=== PATIENT | female | born 1930 | race Caucasian/White ===

== ENCOUNTER 2016-10-17 13:26 | Inpatient (IN) | payer OTHER, MEDICARE ==
[~2016-10-17] VITALS: Ht 162.6 cm; Wt 61.4 kg
[~2016-10-17 13:26] MED LIST: AMIODARONE HCL400 M1 ORAL; ASPIR 8181 MG ORAL; B COMPLEX1 EACH ORAL; BACTRIM DS TAB1 EAC1 ORAL; BENICAR20 MG ORAL; CARVEDILOL25 MG ORAL; CRESTOR20 MG ORAL; FEOSOL325 MG ORAL; GABAPENTIN100 MG ORAL; Guaifenesin/Dextromethorphan ORAL; NITROFURANTOIN100 M2 ORAL; NORVASC10 MG ORAL; SEROQUEL25 MG ORAL; WARFARIN SODIUM6 MG ORAL
--- NOTE | 2016-10-17 14:11 | Emergency Room Report ---
History of Present Illness General Chief Complaint: Dyspnea/Respdistress Source: Patient, Medical Record Present Illness HPI Patient is 86-year-old female who presented after having increased difficulty breathing for the past few days. The patient gradual onset of symptoms. Reportedly she had been sleeping upright for the past 2 days. The patient is had noted to have a prior cardiac history and has history of congestive heart failure. The patient has pacemaker placement in the past the patient reportedly fell approximately 2 days ago.The patient had the complaint of shortness of breath.The patient had worsening shortness of breath with supine position. Allergies: Coded Allergies: No Known Allergies (Unverified , 08/12/14) Patient History Past Medical History: see triage record Reviewed Nursing Documentation: PMH: Agreed, PSxH: Agreed Nursing Documentation-PMH Hx Cardiac Problems: Yes - bypass x4 Hx Hypertension: Yes Hx Pacemaker: Yes Hx Cancer: No Hx Gastrointestinal Problems: Yes - GERD Hx Neurological Problems: Yes Hx Cerebrovascular Accident: Yes Hx Dementia: Yes Review of Systems All Other Systems: negative except mentioned in HPI Physical Exam Vital Signs Date Time Temp Pulse Resp B/P Pulse Ox O2 Delivery O2 Flow Rate FiO2 10/17/16 13:38 97.9 60 28 158/76 98 Room Air General Appearance: alert, Chronically Ill Respiratory: crackles, rales Cardiovascular #1: normal peripheral pulses, regular rate, rhythm Gastrointestinal: normal bowel sounds, non tender, soft Musculoskeletal: normal inspection, back normal Neurologic: normal inspection, alert, oriented x3, responsive Skin: other - facial bruising. Medical Decision Making Diagnostic Impression: Primary Impression: CAD (coronary artery disease) Additional Impressions: Acute exacerbation of CHF (congestive heart failure) Meningioma ER Course Patient presented for shortness of breath.Differential included but was not limited to anemia, pneumonia, pneumothorax, myocardial infarction, pericardial effusion, congestive heart failure, acidosis. Because of complexity of patient' s case laboratory testing and imaging studies were ordered. The patient was noted to have a recent falls and so CT imaging of the head and cervical spine were ordered. Patient appears to be somewhat short of breath. The patient was given IV Lasix. A chest x-ray one view interpreted by me showed cardiomegaly status post sternotomy with a left pleural effusion. EKG showed a paced rhythm with a rate in the 60s there were no EKG changes consistent with acute [place]. CT the head read by radiology showed a meningioma and a small left periorbital scalp hematoma there is no evident fracture patient has some evidence of sinus disease. There is a 3 cm mass or calcifications consistent with a meningioma. CT of the cervical spine showed degenerative changes without evident fracture Labs Test 10/17/16 14:10 10/17/16 15:00 White Blood Count 11.3 K/UL (4.8-10.8) Red Blood Count 3.66 M/UL (4.20-5.40) Hemoglobin 10.8 G/DL (12.0-16.0) Hematocrit 31.5 % (37.0-47.0) Mean Corpuscular Volume 86 FL (80-99) Mean Corpuscular Hemoglobin 29.5 PG (27.0-31.0) Mean Corpuscular Hemoglobin Concent 34.3 G/DL (32.0-36.0) Red Cell Distribution Width 13.6 % (11.6-14.8) Platelet Count 194 K/UL (150-450) Mean Platelet Volume 7.8 FL (6.5-10.1) Neutrophils (%) (Auto) 73.7 % (45.0-75.0) Lymphocytes (%) (Auto) 14.9 % (20.0-45.0) Monocytes (%) (Auto) 9.9 % (1.0-10.0) Eosinophils (%) (Auto) 0.8 % (0.0-3.0) Basophils (%) (Auto) 0.7 % (0.0-2.0) Prothrombin Time 12.1 SEC (9.30-11.50) Prothromb Time International Ratio 1.2 (0.9-1.1) Activated Partial Thromboplast Time 26 SEC (23-33) Sodium Level 139 mEQ/L (135-145) Potassium Level 3.8 mEQ/L (3.4-4.9) Chloride Level 99 mEQ/L (98-107) Carbon Dioxide Level 26 mEQ/L (20-30) Anion Gap 14 (5-15) Blood Urea Nitrogen 15 mg/dL (7-23) Creatinine 1.2 mg/dL (0.5-0.9) Estimat Glomerular Filtration Rate mL/min (>60) Glucose Level 92 mg/dL (74-106) Calcium Level 8.6 mg/dL (8.6-10.2) Total Bilirubin 0.6 mg/dL (0.0-1.2) Aspartate Amino Transf (AST/SGOT) 20 U/L (5-40) Alanine Aminotransferase (ALT/SGPT) 17 U/L (3-33) Alkaline Phosphatase 55 U/L (35-104) Pro-B-Type Natriuretic Peptide 27917 pg/mL (0-450) Total Protein 6.6 g/dL (6.6-8.7) Albumin 3.6 g/dL (3.5-5.2) Globulin 3.0 g/dL Albumin/Globulin Ratio 1.2 (1.0-2.7) Urine Color Yellow Urine Appearance Clear Urine pH 6.5 (4.5-8.0) Urine Specific [place] 1.015 (1.005-1.035) Urine Protein 2+ (NEGATIVE) Urine Glucose (UA) Negative (NEGATIVE) Urine Ketones Negative (NEGATIVE) Urine Occult Blood 1+ (NEGATIVE) Urine Nitrite Negative (NEGATIVE) Urine Bilirubin Negative (NEGATIVE) Urine Urobilinogen 4 MG/DL (0.0-1.0) Urine Leukocyte Esterase Negative (NEGATIVE) EKG Diagnostic Results Rate: normal Rhythm: NSR ST Segments: no acute changes Chest X-Ray Diagnostic Results EP Interpretation: No Findings: no effusion, no pneumothorax, no acute cardiopulmonary disease, other Number of Views: 1 Last Vital Signs Date Time Temp Pulse Resp B/P Pulse Ox O2 Delivery O2 Flow Rate FiO2 10/17/16 13:38 97.9 60 28 158/76 98 Room Air Status: unchanged Disposition: [facility] Condition: Serious Juan Moy Oct 17, 2016 14:11
[2016-10-17 14:25] LABS: BASOPHILS % (AUTO) 0.7 % (0.0-2.0); EOSINOPHILS % (AUTO) 0.8 % (0.0-3.0); LYMPHOCYTES % (AUTO) 14.9 % (20.0-45.0); MEAN CORPUSCULAR HEMOGLOBIN 29.5 PG (27.0-31.0); MEAN CORPUSCULAR HGB CONC 34.3 G/DL (32.0-36.0); MEAN CORPUSCULAR VOLUME 86 FL (80-99); MEAN PLATELET VOLUME 7.8 FL (6.5-10.1); MONOCYTES % (AUTO) 9.9 % (1.0-10.0); NEUTROPHILS % (AUTO) 73.7 % (45.0-75.0); PLATELET COUNT 194 K/UL (150-450); RED BLOOD COUNT 3.66 M/UL (4.20-5.40); RED CELL DISTRIBUTION WIDTH 13.6 % (11.6-14.8); WHITE BLOOD COUNT 11.3 K/UL (4.8-10.8)
[2016-10-17 14:33] LABS: INR 1.2 (0.9-1.1); PROTHROMBIN TIME 12.1 SEC (9.30-11.50)
[2016-10-17 14:42] LABS: ALANINE AMINOTRANSFERASE 17 U/L (3-33); ALBUMIN/GLOBULIN RATIO 1.2 (1.0-2.7); ANION GAP 14 (5-15); ASPARTATE AMINO TRANSFERASE 20 U/L (5-40); CALCIUM 8.6 mg/dL (8.6-10.2); CARBON DIOXIDE 26 mEQ/L (20-30); CHLORIDE 99 mEQ/L (98-107); CREATININE 1.2 mg/dL (0.5-0.9); HEMOLYSIS 15; POTASSIUM 3.8 mEQ/L (3.4-4.9); SODIUM 139 mEQ/L (135-145); TOTAL PROTEIN 6.6 g/dL (6.6-8.7)
--- NOTE | 2016-10-17 14:55 | Diagnostic Imaging Report ---
Indication: SOB, chest pain Technique: One view of the chest Comparison: 05/28/2016 Findings: Patient is rotated to the left. This results in suboptimal visualization of the left lung base. There is a left chest bifocal pacemaker. There is evidence of prior median sternotomy The heart is enlarged. No definite acute infiltrates or congestion, although evaluation of the left lung is limited. There is equivocally minimal blunting of left costophrenic angle Impression: Cardiomegaly Equivocal minimal blunting of left costophrenic angle, if real could indicate a small pleural effusion No definite acute process otherwise Other findings as noted, including evidence of prior median sternotomy, left chest pacemaker,
[2016-10-17 15:16] VITALS: BP 147/89
[2016-10-17 15:24] LABS: APPEARANCE,URINE CLEAR; KETONES,URINE NEGATIVE (NEGATIVE); LEUKOCYTE ESTERASE ,URINE NEGATIVE (NEGATIVE); NITRITE,URINE NEGATIVE (NEGATIVE); PH,URINE 6.5 (4.5-8.0); PROTEIN,URINE 2+ (NEGATIVE); UROBILINOGEN,URINE 4 MG/DL (0.0-1.0)
[2016-10-17 15:33] LABS: BACTERIA,URINE FEW /HPF; RBC,URINE 0-2 /HPF (0 - 2); SQUAMOUS EPITHELIAL CELL,UR FEW /LPF (NONE/OCC); WBC,URINE 0-2 /HPF (0 - 2)
--- NOTE | 2016-10-17 15:35 | Diagnostic Imaging Report ---
Indications: Developing at the 2 days ago Technique: Spiral acquisitions obtained through the brain. Angled axial and coronal 5 x 5 mm slices were reconstructed. Total dose length product 1305 mGycm. CTDI vol(s) 70 mGy Comparison: None Findings: There is a hyperdense extra-axial mass with calcification coming off of the left side of the posterior falx, which measures 3 cm diameter. There is some underlying parenchymal edema within the adjacent deep white matter. There is only local mass effect, there is no midline shift. There is a small left periorbital scalp hematoma. No underlying calvarial injury. There is age-related enlargement of the extra-axial CSF spaces. This there is old encephalomalacia of the right occipital lobe and to lesser extent of the left occipital lobe. No acute hemorrhage or edema. There is an old lacunar infarct in the right external capsule region. No midline shift. Visualized orbits are unremarkable. There is some ethmoid and left maxillary sinus disease. Impression: Negative for acute intracranial bleed or mass effect Dense extra-axial 3 cm mass with calcification coming off of the left side of the posterior falx, consistent with a meningioma. Local mass effect. There is some underlying edema of the subjacent deep white matter Of old infarcts, as described Other chronic and age-related changes, as described Evidence of left periorbital scalp soft tissue contusion Sinus disease The CT scanner at [facility] is accredited by the [employer] and the scans are performed using protocols designed to limit radiation exposure to as low as reasonably achievable to attain images of sufficient resolution adequate for diagnostic evaluation.
[2016-10-17 16:05] VITALS: BP 163/73
--- NOTE | 2016-10-17 17:34 | Diagnostic Imaging Report ---
Indication: PAIN, out of bed 2 days ago Technique: Spiral acquisitions obtained through the cervical spine. No IV contrast utilized. Multiplanar reconstructions were generated. Total dose length product 322 mGycm. CTDIvol(s) 15 mGy Comparison: Findings: There is very slight anterior offset of C4 on C5. Bony alignment is otherwise normal. No acute fractures. No dislocations. Vertebral body heights are preserved. There is degenerative disc narrowing at C5-6 and C6-7. A few small gas bubbles are seen adjacent to the right side of the spine at the C5-6 level. At C2-3, C3-4, C4-5, no significant disc bulge or protrusion, spinal stenosis, or neural foraminal stenosis. At C5-6, there is mild spinal stenosis due to posterior osteophytes. There is severe right, moderate to severe left neural foraminal stenosis. At C6-7, there is mild narrowing of the bilateral neural foramina. No significant disc bulge or protrusion, or spinal stenosis. At C7-T1, no significant disc bulge or protrusion, spinal stenosis, or neural foraminal narrowing. The included extraspinal soft tissues are unremarkable. Impression: No acute bony trauma Degenerative changes, as detailed level by level basis above A few small air bubbles are seen lateral to the right side of the spine, as described. Suspect the these represent reflux gas bubbles from an IV within the paraspinous veins The CT scanner at [facility] is accredited by the [employer] and the scans are performed using protocols designed to limit radiation exposure to as low as reasonably achievable to attain images of sufficient resolution adequate for diagnostic evaluation.
--- NOTE | 2016-10-17 17:58 | History and Physical ---
History of Present Illness General Date patient seen: Oct 17, 2016 Reason for Hospitalization: Dyspnea/Respdistress Present Illness HPI 86-year-old female wtih hx of cardiomyopathy, CHF, pace maker, dementia who presented after having increased difficulty breathing for the past few days. The patient gradual onset of symptoms. Reportedly she had been sleeping upright for the past 2 days. The patient had the complaint of shortness of breath.The patient had worsening shortness of breath with supine position. Allergies: Coded Allergies: No Known Allergies (Unverified , 08/12/14) Medication History Scheduled Amiodarone Hcl* (Amiodarone Hcl*), 200 MG ORAL DAILY, (Reported) Amlodipine Besylate (Norvasc), 10 MG ORAL DAILY Aspirin* (Aspir 81*), 81 MG ORAL DAILY, (Reported) Carvedilol* (Carvedilol*), 25 MG ORAL BID, (Reported) Ferrous Sulfate (Feosol), 325 MG ORAL THREE TIMES A DAY Gabapentin* (Gabapentin*), 100 MG ORAL BID, (Reported) Nitrofurantoin Monohyd/M-Cryst* (Macrobid 100 Mg*), 100 MG ORAL EVERY 12 HOURS Olmesartan Medoxomil (Benicar), 20 MG ORAL DAILY, (Reported) Rosuvastatin Calcium* (Crestor*), 20 MG ORAL DAILY, (Reported) Trimethoprim/Sulfamethoxazole 160/800* (Bactrim Ds Tablet*), 1 TAB ORAL TWICE A DAY Vitamin B Complex (B Complex), 1 TAB ORAL DAILY, (Reported) Scheduled PRN Quetiapine Fumarate* (Seroquel*), 25 MG ORAL QHS PRN for ANXIETY [Guaifenesin/Dextromethorphan], 10 ML ORAL Q4H PRN for For Cough Patient History Healthcare decision maker Resuscitation status Advanced Directive on File Past Medical/Surgical History Past Medical/Surgical History: (1) Pacemaker (2) Acute exacerbation of CHF (congestive heart failure) (3) CAD (coronary artery disease) (4) Sepsis (5) UTI (lower urinary tract infection) Review of Systems All Other Systems: negative except mentioned in HPI Physical Exam General Appearance: WD/WN Lines, tubes and drains: peripheral, central line HEENT: normocephalic, anicteric Neck: non-tender, supple Respiratory/Chest: chest wall non-tender, lungs clear Cardiovascular/Chest: normal peripheral pulses, normal rate Abdomen: normal bowel sounds, non tender Genitourinary/Rectal: normal genital exam Extremities: normal range of motion Last 24 Hour Vital Signs Date Time Temp Pulse Resp B/P Pulse Ox O2 Delivery O2 Flow Rate FiO2 10/17/16 16:05 97.9 61 21 163/73 98 Room Air 10/17/16 15:16 97.9 60 22 147/89 98 Room Air 10/17/16 15:16 60 23 Room Air 10/17/16 13:38 97.9 60 28 158/76 98 Room Air Laboratory Tests Test 10/17/16 14:10 10/17/16 15:00 White Blood Count 11.3 K/UL (4.8-10.8) H Red Blood Count 3.66 M/UL (4.20-5.40) L Hemoglobin 10.8 G/DL (12.0-16.0) L Hematocrit 31.5 % (37.0-47.0) L Mean Corpuscular Volume 86 FL (80-99) Mean Corpuscular Hemoglobin 29.5 PG (27.0-31.0) Mean Corpuscular Hemoglobin Concent 34.3 G/DL (32.0-36.0) Red Cell Distribution Width 13.6 % (11.6-14.8) Platelet Count 194 K/UL (150-450) Mean Platelet Volume 7.8 FL (6.5-10.1) Neutrophils (%) (Auto) 73.7 % (45.0-75.0) Lymphocytes (%) (Auto) 14.9 % (20.0-45.0) L Monocytes (%) (Auto) 9.9 % (1.0-10.0) Eosinophils (%) (Auto) 0.8 % (0.0-3.0) Basophils (%) (Auto) 0.7 % (0.0-2.0) Prothrombin Time 12.1 SEC (9.30-11.50) H Prothromb Time International Ratio 1.2 (0.9-1.1) H Activated Partial Thromboplast Time 26 SEC (23-33) Sodium Level 139 mEQ/L (135-145) Potassium Level 3.8 mEQ/L (3.4-4.9) Chloride Level 99 mEQ/L (98-107) Carbon Dioxide Level 26 mEQ/L (20-30) Anion Gap 14 (5-15) Blood Urea Nitrogen 15 mg/dL (7-23) Creatinine 1.2 mg/dL (0.5-0.9) H Estimat Glomerular Filtration Rate mL/min (>60) Glucose Level 92 mg/dL (74-106) Calcium Level 8.6 mg/dL (8.6-10.2) Total Bilirubin 0.6 mg/dL (0.0-1.2) Aspartate Amino Transf (AST/SGOT) 20 U/L (5-40) Alanine Aminotransferase (ALT/SGPT) 17 U/L (3-33) Alkaline Phosphatase 55 U/L (35-104) Pro-B-Type Natriuretic Peptide 97604 pg/mL (0-450) H Total Protein 6.6 g/dL (6.6-8.7) Albumin 3.6 g/dL (3.5-5.2) Globulin 3.0 g/dL Albumin/Globulin Ratio 1.2 (1.0-2.7) Urine Color Yellow Urine Appearance Clear Urine pH 6.5 (4.5-8.0) Urine Specific [place] 1.015 (1.005-1.035) Urine Protein 2+ (NEGATIVE) H Urine Glucose (UA) Negative (NEGATIVE) Urine Ketones Negative (NEGATIVE) Urine Occult Blood 1+ (NEGATIVE) H Urine Nitrite Negative (NEGATIVE) Urine Bilirubin Negative (NEGATIVE) Urine Urobilinogen 4 MG/DL (0.0-1.0) H Urine Leukocyte Esterase Negative (NEGATIVE) Urine RBC 0-2 /HPF (0 - 2) Urine WBC 0-2 /HPF (0 - 2) Urine Squamous Epithelial Cells Few /LPF (NONE/OCC) Urine Bacteria Few /HPF (NONE) Height (Feet): 5 Height (Inches): 4.00 Weight (Pounds): 140 Assessment/Plan Problem List: (1) Acute exacerbation of CHF (congestive heart failure) ICD Codes: I50.9 - Heart failure, unspecified SNOMED: 83895182 (2) Pacemaker ICD Codes: Z95.0 - Presence of cardiac pacemaker SNOMED: 267398006, 657867444 (3) CAD (coronary artery disease) ICD Codes: I25.10 - CAD (coronary artery disease) SNOMED: 47380474 Assessment/Plan cardiac evaluation telemetry check pace maker diuretics respiratory treatment titrate cardiac meds KEITH PAIGE Oct 17, 2016 17:58
[2016-10-17] MEDS ORDERED: Miralax 17gm pkt ORAL PRN (18:00)
[2016-10-17] MEDS ORDERED: DuoNeb 0.5-3(2.5)mg/3ml neb HHN PRN (18:00)
[2016-10-17 18:39] VITALS: BP 163/81
[2016-10-17 20:10] VITALS: BP 163/81
[2016-10-17 20:20] LABS: TROPONIN I < 0.30 ng/mL (<=0.30)
[2016-10-17] MEDS: Carvedilol 25mg Tab ORAL SCH (22:08)
[2016-10-17] MEDS: Heparin 5000 units/ml inj SUBQ SCH (22:09)
[2016-10-18] VITALS: BP 163/75
[2016-10-18 04:00] VITALS: BP 118/93
[2016-10-18 07:08] LABS: BASOPHILS % (AUTO) 0.8 % (0.0-2.0); EOSINOPHILS % (AUTO) 0.8 % (0.0-3.0); LYMPHOCYTES % (AUTO) 11.8 % (20.0-45.0); MEAN CORPUSCULAR HEMOGLOBIN 27.2 PG (27.0-31.0); MEAN CORPUSCULAR HGB CONC 31.8 G/DL (32.0-36.0); MEAN CORPUSCULAR VOLUME 86 FL (80-99); MEAN PLATELET VOLUME 8.5 FL (6.5-10.1); MONOCYTES % (AUTO) 11.3 % (1.0-10.0); NEUTROPHILS % (AUTO) 75.3 % (45.0-75.0); PLATELET COUNT 215 K/UL (150-450); RED BLOOD COUNT 4.15 M/UL (4.20-5.40); RED CELL DISTRIBUTION WIDTH 13.3 % (11.6-14.8); WHITE BLOOD COUNT 9.4 K/UL (4.8-10.8)
[2016-10-18 07:17] LABS: TROPONIN I < 0.30 ng/mL (<=0.30)
[2016-10-18 07:31] LABS: ALANINE AMINOTRANSFERASE 17 U/L (3-33); ALBUMIN/GLOBULIN RATIO 1.1 (1.0-2.7); ANION GAP 13 (5-15); ASPARTATE AMINO TRANSFERASE 20 U/L (5-40); CARBON DIOXIDE 33 mEQ/L (20-30); CHLORIDE 97 mEQ/L (98-107); CREATININE 1.2 mg/dL (0.5-0.9); HEMOLYSIS 2; SODIUM 143 mEQ/L (135-145); TOTAL PROTEIN 6.9 g/dL (6.6-8.7)
[2016-10-18 07:44] LABS: POTASSIUM 2.7 mEQ/L (3.4-4.9)
[2016-10-18 07:58] VITALS: BP 151/58
[2016-10-18] MEDS: Amiodarone 200mg tab ORAL SCH (09:12)
[2016-10-18] MEDS: Heparin 5000 units/ml inj SUBQ SCH ×2 (09:14→21:24)
[2016-10-18] MEDS: Carvedilol 25mg Tab ORAL SCH ×2 (09:22→21:22)
[2016-10-18 11:41] VITALS: BP 118/59
--- NOTE | 2016-10-18 12:58 | Pulmonology Progress Note ---
Assessment/Plan Problems: (1) Acute exacerbation of CHF (congestive heart failure) (2) Pacemaker (3) CAD (coronary artery disease) Assessment/Plan k supplement measure intake and output check electrolytes 2d echo dvt prophylaxis wbc is better today. Subjective ROS Limited/Unobtainable: No Interval Events: doing better Constitutional: Reports: no symptoms HEENT: Repors: no symptoms Respiratory: Reports: no symptoms Cardiovascular: Reports: no symptoms Allergies: Coded Allergies: No Known Allergies (Unverified , 08/12/14) Objective Last 24 Hour Vital Signs Date Time Temp Pulse Resp B/P Pulse Ox O2 Delivery O2 Flow Rate FiO2 10/18/16 11:41 97.3 61 18 118/59 95 Room Air 10/18/16 09:22 60 151/58 10/18/16 09:12 60 151/58 10/18/16 08:14 60 18 Room Air 10/18/16 07:58 97.0 60 20 151/58 94 Room Air 10/18/16 04:00 97.6 60 16 118/93 93 Room Air 10/18/16 04:00 60 10/18/16 00:00 60 10/18/16 00:00 97.7 60 16 163/75 93 Room Air 10/17/16 22:08 60 163/81 10/17/16 20:10 93.4 60 15 163/81 96 Room Air 10/17/16 20:05 65 18 Room Air 10/17/16 20:00 60 10/17/16 18:39 93.4 60 15 163/81 96 Room Air 10/17/16 18:17 97.9 61 21 163/73 98 Room Air 10/17/16 16:05 97.9 61 21 163/73 98 Room Air 10/17/16 15:16 97.9 60 22 147/89 98 Room Air 10/17/16 15:16 60 23 Room Air 10/17/16 13:38 97.9 60 28 158/76 98 Room Air Intake and Output 10/17/16 10/18/16 19:00 07:00 Output Total 1300 ml 4175 ml Balance -1300 ml -4175 ml Output Urine Total 1300 ml 4175 ml General Appearance: WD/WN HEENT: normocephalic, atraumatic Respiratory/Chest: chest wall non-tender, lungs clear Cardiovascular: normal peripheral pulses, regular rhythm Genitourinary: normal external genitalia Extremities: no clubbing 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: 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 Laboratory Tests 10/17/16 14:10: White Blood Count 11.3H, Red Blood Count 3.66L, Hemoglobin 10.8L, Hematocrit 31.5L, Mean Corpuscular Volume 86, Mean Corpuscular Hemoglobin 29.5, Mean Corpuscular Hemoglobin Concent 34.3, Red Cell Distribution Width 13.6, Platelet Count 194, Mean Platelet Volume 7.8, Neutrophils (%) (Auto) 73.7, Lymphocytes (% ) (Auto) 14.9L, Monocytes (%) (Auto) 9.9, Eosinophils (%) (Auto) 0.8, Basophils (%) (Auto) 0.7, Prothrombin Time 12.1H, Prothromb Time International Ratio 1.2H , Activated Partial Thromboplast Time 26, Sodium Level 139, Potassium Level 3.8 , Chloride Level 99, Carbon Dioxide Level 26, Anion Gap 14, Blood Urea Nitrogen 15, Creatinine 1.2H, Estimat Glomerular Filtration Rate , Glucose Level 92, Calcium Level 8.6, Total Bilirubin 0.6, Aspartate Amino Transf (AST/SGOT) 20, Alanine Aminotransferase (ALT/SGPT) 17, Alkaline Phosphatase 55, Troponin I < 0.30, Pro-B-Type Natriuretic Peptide 53299I, Total Protein 6.6, Albumin 3.6, Globulin 3.0, Albumin/Globulin Ratio 1.2 10/17/16 15:00: Urine Color Yellow, Urine Appearance Clear, Urine pH 6.5, Urine Specific [place] 1.015, Urine Protein 2+H, Urine Glucose (UA) Negative, Urine Ketones Negative, Urine Occult Blood 1+H, Urine Nitrite Negative, Urine Bilirubin Negative, Urine Urobilinogen 4H, Urine Leukocyte Esterase Negative, Urine RBC 0- 2, Urine WBC 0-2, Urine Squamous Epithelial Cells Few, Urine Bacteria Few 10/18/16 06:15: White Blood Count 9.4, Red Blood Count 4.15L, Hemoglobin 11.3L, Hematocrit 35.5L , Mean Corpuscular Volume 86, Mean Corpuscular Hemoglobin 27.2, Mean Corpuscular Hemoglobin Concent 31.8L, Red Cell Distribution Width 13.3, Platelet Count 215, Mean Platelet Volume 8.5, Neutrophils (%) (Auto) 75.3H, Lymphocytes (%) (Auto) 11.8L, Monocytes (%) (Auto) 11.3H, Eosinophils (%) (Auto ) 0.8, Basophils (%) (Auto) 0.8, Sodium Level 143, Potassium Level 2.7*L, Chloride Level 97L, Carbon Dioxide Level 33H, Anion Gap 13, Blood Urea Nitrogen 13, Creatinine 1.2H, Estimat Glomerular Filtration Rate , Glucose Level 95, Calcium Level 9.0, Total Bilirubin 0.6, Aspartate Amino Transf (AST/SGOT) 20, Alanine Aminotransferase (ALT/SGPT) 17, Alkaline Phosphatase 57, Troponin I < 0.30, Total Protein 6.9, Albumin 3.7, Globulin 3.2, Albumin/Globulin Ratio 1.1, Phosphorus Level 3.7, Magnesium Level 2.0 Current Medications Medications (Trade) Dose Ordered Sig/Fernando Route PRN Reason Start Time Stop Time Status Last Admin Dose Admin Acetaminophen (Tylenol) 650 mg Q4H PRN ORAL Fever 10/17/16 18:00 11/16/16 17:59 Albuterol/ Ipratropium (DuoNeb 0.5-3(2.5)mg/3ml) 3 ml Q4H PRN HHN Shortness of Breath 10/17/16 18:00 10/22/16 17:59 Amiodarone HCl (Cordarone) 200 mg DAILY ORAL 10/18/16 09:00 11/17/16 08:59 10/18/16 09:12 Amlodipine Besylate (Norvasc) 10 mg DAILY ORAL 10/18/16 09:00 11/17/16 08:59 10/18/16 09:12 Carvedilol (Coreg) 25 mg Q12HR ORAL 10/17/16 21:00 11/16/16 20:59 10/18/16 09:22 Dextrose (Dextrose 50%) STAT PRN IV Hypoglycemia 10/17/16 18:00 11/16/16 17:59 Furosemide (Lasix) 40 mg EVERY 8 HOURS IV 10/17/16 22:00 11/16/16 21:59 10/18/16 06:06 Heparin Sodium (Porcine) (Heparin 5000 units/ml) 5,000 units EVERY 12 HOURS SUBQ 10/17/16 21:00 11/16/16 20:59 10/18/16 09:14 Ondansetron HCl (Zofran) 4 mg Q6H PRN IVP Nausea & Vomiting 10/17/16 18:00 11/16/16 17:59 Polyethylene Glycol (Miralax) 17 gm DAILYPRN PRN ORAL Constipation 10/17/16 18:00 11/16/16 17:59 Potassium Chloride (K-Dur) 40 meq TWICE A DAY ORAL 10/18/16 18:00 11/17/16 17:59 Quetiapine Fumarate (SEROquel) 25 mg HSPRN PRN ORAL ANXIETY 10/17/16 18:00 11/16/16 17:59 Temazepam (Restoril) 15 mg HSPRN PRN ORAL Insomnia 10/17/16 18:00 10/24/16 17:59 KEITH PAIGE Oct 18, 2016 12:58
[2016-10-18 16:20] VITALS: BP 128/64
--- NOTE | 2016-10-18 17:26 | Consultation ---
Consult Note Consult Note Cardiology for Dr. Harvey full note dictated # [id number] AMAURI ZAIDI Oct 18, 2016 17:26
[2016-10-18 20:50] VITALS: BP 135/83
[2016-10-19 00:11] VITALS: BP 94/65
[2016-10-19 04:32] VITALS: BP 118/50
[2016-10-19 07:09] LABS: TROPONIN I < 0.30 ng/mL (<=0.30)
--- NOTE | 2016-10-19 07:48 | Consultation ---
DATE OF CONSULTATION: CARDIOLOGY CONSULTATION: REQUESTING PHYSICIAN: Joseph Dsouza M.D. REASON FOR CONSULT: Shortness of breath and congestive heart failure. HISTORY OF PRESENT ILLNESS: History was obtained primarily from the treating providers current and old charts as the patient is Palestinian-speaking and has dementia. The patient is an 86-year-old white female with a history of severe aortic stenosis initially diagnosed in 2012 (aortic valve area 0.6 cm, EF 48% at that time) history of coronary artery disease, remote history of coronary artery bypass graft surgery, and history of sick sinus syndrome status post permanent pacemaker in 2001 with generator replacement (Biotronik) in 2010. She was brought to the emergency room with complaints of increasing shortness of breath, orthopnea, and PND over the few days prior to admission. In the emergency room, she had a blood pressure of 160/73, pulse 61, and oxygen saturation 98% on room air. Her chest x-ray showed cardiomegaly and small left pleural effusion. Laboratory studies [place] [address] and negative troponin levels. EKG showed an atrial paced rhythm. She was admitted for further treatment and Cardiology evaluation was requested. PAST MEDICAL HISTORY: As noted above. Also history of urinary tract infections and history of previous CVA with left sided weakness. MEDICATIONS: Potassium 40 mEq twice daily, Cordarone 200 mg daily, amlodipine 10 mg daily, Lasix 40 mg IV every eight hours, Coreg 25 mg q.12 hours, subcutaneous heparin 5000 units q.12. hours, Seroquel 25 mg at nightly p.r.n., Restoril 15 mg nightly p.r.n., Tylenol and Zofran p.r.n., albuterol, and ipratropium nebulizer q.4 hours p.r.n. ALLERGIES: No known drug allergies. SOCIAL HISTORY: Not obtainable from the patient or chart. REVIEW OF SYSTEMS: Not obtainable from the patient or chart. PHYSICAL EXAMINATION: VITAL SIGNS: Blood pressure is 118/60, pulse 60 regular, respirations 18, and afebrile. GENERAL: The patient is alert, agitated white female, in no acute distress. HEENT: There is periorbital ecchymosis. Pupils equal, round, and reactive to light. Sclerae anicteric. Oral mucosa moist. NECK: Supple. Carotid volumes are diminished bilaterally. There are no bruits. LUNGS: Decreased breath sounds at the bases bilaterally. HEART: Regular rate and rhythm. S1, S2 with a 1 to 2/6 systolic ejection murmur. Late peaking of the right second intercostal space. ABDOMEN: Soft and nontender. No palpable mass. EXTREMITIES: No cyanosis, clubbing, or edema. LABORATORY AND DIAGNOSTIC DATA: Troponin less than 0.3. ProBNP 66781. Sodium 139, potassium 3.8, BUN 15, and creatinine 1.2. Hemoglobin 11.3, white blood count 9400, platelets 215,000. EKG shows an atrial paced rhythm at a rate of 60 beats per minute with a long AV conduction time, conducted QRS complexes are narrow. There are inverted T-waves in the lateral leads 1L as well as V2 thru V6. No ST-segment changes. Chest x-ray shows permanent pacemaker with leads in the right atrium right ventricle. No infiltrates or cardiomegaly. ASSESSMENT AND RECOMMENDATIONS: The patient is an 86-year-old woman with a history of coronary artery disease, remote history of coronary artery bypass graft surgery, history of aortic stenosis diagnosed three years ago, but with no intervention undertaken at that time given the patient's low functional status. She now is admitted with sick sinus syndrome status post permanent dual-chamber pacemaker, previous CVA, and history of severe aortic stenosis with no intervention performed given the patient's comorbidities and low functional status. She now was admitted with congestive heart failure, which appears to be responding to intravenous diuretics. Her echo (preliminary report shows severe aortic stenosis and normal left ventricular ejection fraction. She is not likely to be a candidate currently for intervention aortic valve given the previous history of echo shows severe aortic stenosis. She will be treated with diuretics. Pacemaker will be evaluated. Potassium will be supplemented as today's potassium was 2.7. Further recommendations will be made following discussion with the family regarding the feasibility of intervention on the aortic valve in the past. Family has declined given the patient's comorbidities and limited prognosis. Adriana Stephens M.D. DR: Paola JOB#: [id number] CC:
[2016-10-19 08:22] VITALS: BP 140/58
[2016-10-19] MEDS: Carvedilol 25mg Tab ORAL SCH ×2 (10:23→21:10)
[2016-10-19] MEDS: Amiodarone 200mg tab ORAL SCH (10:24)
[2016-10-19] MEDS: Heparin 5000 units/ml inj SUBQ SCH ×2 (10:26→21:09)
[2016-10-19 12:16] VITALS: BP 130/73
--- NOTE | 2016-10-19 14:17 | Cardiology Progress Note ---
Assessment/Plan Status: stable, progressing Status Narrative CHF - due to valvular heart disease - severe aortic stenosis by ECHO Diuresing w/ iv lasix - > 3L yesterday. h/o sick sinus synd / s/p permanent pacemaker Assessment/Plan Will check labs today - incl K, Mg, as may need further supplement w/ diuresis Continue to follow i/os Change lasix to po She was previously evaluated for and not felt to be a candidate for AVR or TAVR Subjective ROS Limited/Unobtainable: No Subjective No c/o CP , dyspnea. More alert Objective Last 24 Hour Vital Signs Date Time Temp Pulse Resp B/P Pulse Ox O2 Delivery O2 Flow Rate FiO2 10/19/16 12:16 98.1 61 20 130/73 95 Room Air 10/19/16 10:24 60 140/58 10/19/16 10:23 60 140/58 10/19/16 08:22 97.9 60 20 140/58 95 Room Air 10/19/16 08:00 60 10/19/16 07:50 62 18 Room Air 10/19/16 04:32 98.1 65 19 118/50 95 Room Air 10/19/16 00:57 60 10/19/16 00:11 97.9 62 18 94/65 96 Room Air 10/18/16 21:22 60 135/83 10/18/16 20:50 96.5 60 20 135/83 92 Room Air 10/18/16 19:26 63 18 Room Air 10/18/16 16:20 98.2 61 18 128/64 96 Room Air 10/18/16 16:00 60 General Appearance: WD/WN, alert EENT: PERRL/EOMI Neck: supple, no JVD, other - carotid volumes decreased Rhythm: NSR Cardiovascular: normal rate, regular rhythm, systolic murmur - ii/vi late peaking CHRISSIE R second ics Respiratory/Chest: lungs clear Abdomen: non tender, soft Extremities: no swelling Intake and Output 10/18/16 10/19/16 19:00 07:00 Intake Total 240 ml Output Total 2300 ml 1400 ml Balance -2060 ml -1400 ml Intake Oral 240 ml Output Urine Total 2300 ml 1400 ml Laboratory Tests Test 10/19/16 05:30 Troponin I < 0.30 ng/mL (<=0.30) Microbiology Date/Time Source Procedure Growth Status 10/17/16 14:15 Blood Blood Culture - Preliminary NO GROWTH AFTER 24 HOURS Resulted 10/17/16 14:05 Blood Blood Culture - Preliminary NO GROWTH AFTER 24 HOURS Resulted AMAURI ZAIDI Oct 19, 2016 14:17
[2016-10-19 14:37] LABS: ANION GAP 15 (5-15); CALCIUM 9.2 mg/dL (8.6-10.2); CARBON DIOXIDE 32 mEQ/L (20-30); CHLORIDE 93 mEQ/L (98-107); CREATININE 1.5 mg/dL (0.5-0.9); HEMOLYSIS 3; POTASSIUM 3.1 mEQ/L (3.4-4.9); SODIUM 140 mEQ/L (135-145)
--- NOTE | 2016-10-19 15:03 | Internal Med Progress Note ---
Subjective Date of Service: Oct 19, 2016 Physician Name NurisJuan Attending Physician Joseph Dsouza Current Medications Medications (Trade) Dose Ordered Sig/Fernando Route PRN Reason Start Time Stop Time Status Last Admin Dose Admin Acetaminophen (Tylenol) 650 mg Q4H PRN ORAL Fever 10/17/16 18:00 11/16/16 17:59 Albuterol/ Ipratropium (DuoNeb 0.5-3(2.5)mg/3ml) 3 ml Q4H PRN HHN Shortness of Breath 10/17/16 18:00 10/22/16 17:59 Amiodarone HCl (Cordarone) 200 mg DAILY ORAL 10/18/16 09:00 11/17/16 08:59 10/19/16 10:24 Amlodipine Besylate (Norvasc) 10 mg DAILY ORAL 10/18/16 09:00 11/17/16 08:59 10/19/16 10:24 Carvedilol (Coreg) 25 mg Q12HR ORAL 10/17/16 21:00 11/16/16 20:59 10/19/16 10:23 Dextrose (Dextrose 50%) STAT PRN IV Hypoglycemia 10/17/16 18:00 11/16/16 17:59 Furosemide (Lasix) 40 mg EVERY 12 HOURS ORAL 10/19/16 21:00 11/18/16 20:59 Heparin Sodium (Porcine) (Heparin 5000 units/ml) 5,000 units EVERY 12 HOURS SUBQ 10/17/16 21:00 11/16/16 20:59 10/19/16 10:26 Ondansetron HCl (Zofran) 4 mg Q6H PRN IVP Nausea & Vomiting 10/17/16 18:00 11/16/16 17:59 Polyethylene Glycol (Miralax) 17 gm DAILYPRN PRN ORAL Constipation 10/17/16 18:00 11/16/16 17:59 Potassium Chloride (K-Dur) 40 meq TWICE A DAY ORAL 10/18/16 18:00 11/17/16 17:59 10/19/16 10:24 Quetiapine Fumarate (SEROquel) 25 mg HSPRN PRN ORAL ANXIETY 10/17/16 18:00 11/16/16 17:59 Temazepam (Restoril) 15 mg HSPRN PRN ORAL Insomnia 10/17/16 18:00 10/24/16 17:59 10/18/16 21:22 Allergies: Coded Allergies: No Known Allergies (Unverified , 08/12/14) ROS Limited/Unobtainable: Yes Subjective Cover for Int Med-Dr Dsouza. 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 Skin: normal pigmentation, warm/dry Laboratory Tests Test 10/19/16 05:30 Sodium Level 140 mEQ/L (135-145) Potassium Level 3.1 mEQ/L (3.4-4.9) L Chloride Level 93 mEQ/L (98-107) L Carbon Dioxide Level 32 mEQ/L (20-30) H Anion Gap 15 (5-15) Blood Urea Nitrogen 17 mg/dL (7-23) Creatinine 1.5 mg/dL (0.5-0.9) H Estimat Glomerular Filtration Rate mL/min (>60) Glucose Level 85 mg/dL (74-106) Calcium Level 9.2 mg/dL (8.6-10.2) Troponin I < 0.30 ng/mL (<=0.30) Microbiology Date/Time Source Procedure Growth Status 10/17/16 14:15 Blood Blood Culture - Preliminary NO GROWTH AFTER 24 HOURS Resulted 10/17/16 14:05 Blood Blood Culture - Preliminary NO GROWTH AFTER 24 HOURS Resulted Intake and Output 10/18/16 10/19/16 19:00 07:00 Intake Total 240 ml Output Total 2300 ml 1400 ml Balance -2060 ml -1400 ml Intake Oral 240 ml Output Urine Total 2300 ml 1400 ml Assessment/Plan Problem List: (1) Sick sinus syndrome Assessment & Plan: S/P pacemaker. (2) Cerebral vascular disease (3) Hemiparesis, left (4) Aortic stenosis, severe (5) SOB (shortness of breath) Assessment & Plan: Due to CHF. Cont lasix (6) Acute exacerbation of CHF (congestive heart failure) Assessment & Plan: See cardiology note. Cont lasix (7) Pacemaker (8) CAD (coronary artery disease) Status: not improved JUAN CELESTIN Oct 19, 2016 15:02
[2016-10-19 16:00] VITALS: BP 100/53
[2016-10-19 20:00] VITALS: BP 128/50
[2016-10-19] MEDS: Furosemide 40mg tab ORAL SCH (21:09)
[2016-10-20] VITALS (7 sets, daily range): BP systolic 103–152; BP diastolic 52–84
[2016-10-20 07:37] LABS: EOSINOPHILS % (AUTO) 0.3 % (0.0-3.0); LYMPHOCYTES % (AUTO) 13.3 % (20.0-45.0); MEAN CORPUSCULAR HEMOGLOBIN 26.4 PG (27.0-31.0); MEAN CORPUSCULAR HGB CONC 30.3 G/DL (32.0-36.0); MEAN CORPUSCULAR VOLUME 87 FL (80-99); MONOCYTES % (AUTO) 17.4 % (1.0-10.0); NEUTROPHILS % (AUTO) 67.1 % (45.0-75.0); PLATELET COUNT 280 K/UL (150-450); RED BLOOD COUNT 4.87 M/UL (4.20-5.40); RED CELL DISTRIBUTION WIDTH 13.1 % (11.6-14.8)
[2016-10-20 08:03] LABS: ANION GAP 15 (5-15); CALCIUM 9.4 mg/dL (8.6-10.2); CARBON DIOXIDE 31 mEQ/L (20-30); CHLORIDE 94 mEQ/L (98-107); CREATININE 1.7 mg/dL (0.5-0.9); HEMOLYSIS 2; POTASSIUM 3.5 mEQ/L (3.4-4.9); SODIUM 140 mEQ/L (135-145)
[2016-10-20] MEDS: Heparin 5000 units/ml inj SUBQ SCH ×2 (09:00→21:06)
[2016-10-20] MEDS: Furosemide 40mg tab ORAL SCH (09:00)
[2016-10-20] MEDS: Carvedilol 25mg Tab ORAL SCH ×2 (09:00→21:05)
[2016-10-20] MEDS: Amiodarone 200mg tab ORAL SCH (09:00)
--- NOTE | 2016-10-20 11:28 | Diagnostic Imaging Report ---
Indication: DYSPNEA Technique: One view of the chest Comparison: 10/17/2016 Findings: There is persistent left basilar parenchymal opacity. There is elevation left hemidiaphragm. There may be some pleural fluid on the left. Right lung and pleural space remain clear. Left chest pacemaker remains. Heart remains enlarged. Aorta is tortuous and calcified Impression: Left basilar volume loss, likely left basilar parenchymal consolidation and pleural fluid
--- NOTE | 2016-10-20 14:45 | Pulmonology Progress Note ---
Assessment/Plan Problems: (1) Acute exacerbation of CHF (congestive heart failure) (2) Pacemaker (3) CAD (coronary artery disease) Assessment/Plan k supplement measure intake and output check electrolytes 2d echo result noted, severe dvt prophylaxis wbc is 11 TODAY creatinine rising, will hold lasix and get renal studies Subjective ROS Limited/Unobtainable: No Interval Events: looks comfortable Allergies: Coded Allergies: No Known Allergies (Unverified , 08/12/14) Objective Last 24 Hour Vital Signs Date Time Temp Pulse Resp B/P Pulse Ox O2 Delivery O2 Flow Rate FiO2 10/20/16 12:00 60 10/20/16 12:00 97.7 60 20 149/55 95 Room Air 10/20/16 09:00 96 128/56 10/20/16 09:00 96 128/56 10/20/16 08:39 96 18 Room Air 10/20/16 08:00 97.8 67 16 128/56 95 Room Air 10/20/16 08:00 60 10/20/16 04:00 97.7 61 16 103/52 94 Room Air 10/20/16 04:00 60 10/20/16 00:00 99.7 63 16 132/61 92 Room Air 10/19/16 23:46 60 10/19/16 21:10 60 128/50 10/19/16 20:00 98.1 60 26 128/50 95 Room Air 10/19/16 19:47 60 10/19/16 19:35 64 18 Room Air 10/19/16 16:00 60 10/19/16 16:00 97.9 61 14 100/53 94 Room Air Intake and Output 10/19/16 10/20/16 19:00 07:00 Intake Total 150 ml Output Total 600 ml 300 ml Balance -450 ml -300 ml Intake Oral 50 ml Other 100 ml Output Urine Total 600 ml 300 ml General Appearance: WD/WN HEENT: normocephalic, atraumatic Respiratory/Chest: chest wall non-tender, normal breath sounds Cardiovascular: normal peripheral pulses, normal rate Abdomen: normal bowel sounds, soft, non tender Skin: no lesions 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, no motor/sensory deficits Lymphatic: no neck adenopathy Laboratory Tests 10/20/16 06:45: White Blood Count 11.0H, Red Blood Count 4.87, Hemoglobin 12.8, Hematocrit 42.3 , Mean Corpuscular Volume 87, Mean Corpuscular Hemoglobin 26.4L, Mean Corpuscular Hemoglobin Concent 30.3L, Red Cell Distribution Width 13.1, Platelet Count 280, Mean Platelet Volume 7.0, Neutrophils (%) (Auto) 67.1, Lymphocytes (%) (Auto) 13.3L, Monocytes (%) (Auto) 17.4H, Eosinophils (%) (Auto ) 0.3, Basophils (%) (Auto) 2.0, Sodium Level 140, Potassium Level 3.5, Chloride Level 94L, Carbon Dioxide Level 31H, Anion Gap 15, Blood Urea Nitrogen 23, Creatinine 1.7H, Estimat Glomerular Filtration Rate , Glucose Level 111H, Calcium Level 9.4, Pro-B-Type Natriuretic Peptide 4139H Current Medications Medications (Trade) Dose Ordered Sig/Fernando Route PRN Reason Start Time Stop Time Status Last Admin Dose Admin Acetaminophen (Tylenol) 650 mg Q4H PRN ORAL Fever 10/17/16 18:00 11/16/16 17:59 Albuterol/ Ipratropium (DuoNeb 0.5-3(2.5)mg/3ml) 3 ml Q4H PRN HHN Shortness of Breath 10/17/16 18:00 10/22/16 17:59 Amiodarone HCl (Cordarone) 200 mg DAILY ORAL 10/18/16 09:00 11/17/16 08:59 10/19/16 10:24 Amlodipine Besylate (Norvasc) 10 mg DAILY ORAL 10/18/16 09:00 11/17/16 08:59 10/19/16 10:24 Carvedilol (Coreg) 25 mg Q12HR ORAL 10/17/16 21:00 11/16/16 20:59 10/19/16 21:10 Dextrose (Dextrose 50%) STAT PRN IV Hypoglycemia 10/17/16 18:00 11/16/16 17:59 Furosemide (Lasix) 40 mg EVERY 12 HOURS ORAL 10/19/16 21:00 11/18/16 20:59 10/19/16 21:09 Heparin Sodium (Porcine) (Heparin 5000 units/ml) 5,000 units EVERY 12 HOURS SUBQ 10/17/16 21:00 11/16/16 20:59 10/19/16 21:09 Ondansetron HCl (Zofran) 4 mg Q6H PRN IVP Nausea & Vomiting 10/17/16 18:00 11/16/16 17:59 Polyethylene Glycol (Miralax) 17 gm DAILYPRN PRN ORAL Constipation 10/17/16 18:00 11/16/16 17:59 Potassium Chloride (K-Dur) 40 meq TWICE A DAY ORAL 10/18/16 18:00 11/17/16 17:59 10/19/16 10:24 Quetiapine Fumarate (SEROquel) 25 mg HSPRN PRN ORAL ANXIETY 10/17/16 18:00 11/16/16 17:59 Temazepam (Restoril) 15 mg HSPRN PRN ORAL Insomnia 10/17/16 18:00 10/24/16 17:59 10/18/16 21:22 KEITH PAIGE Oct 20, 2016 14:45
--- NOTE | 2016-10-20 15:11 | Cardiology Progress Note ---
Assessment/Plan Assessment/Plan severe as apparently asymptomatic (known) acute diastolic failure afib paroxysmal cad s/p cabg dementia multiple cvas acute renao insuf agree with holding diurtics fro a few day will need to resume po diuretic onur few days to avoid readmission on admission her med list does not include diuretics nto felt to be a candidate for invasive Aortic vavle therpay due to multiple comorbidities even though nwo she has an indication inlight of acute chf Subjective ROS Limited/Unobtainable: Yes Objective Last 24 Hour Vital Signs Date Time Temp Pulse Resp B/P Pulse Ox O2 Delivery O2 Flow Rate FiO2 10/20/16 12:00 60 10/20/16 12:00 97.7 60 20 149/55 95 Room Air 10/20/16 09:00 96 128/56 10/20/16 09:00 96 128/56 10/20/16 08:39 96 18 Room Air 10/20/16 08:00 97.8 67 16 128/56 95 Room Air 10/20/16 08:00 60 10/20/16 04:00 97.7 61 16 103/52 94 Room Air 10/20/16 04:00 60 10/20/16 00:00 99.7 63 16 132/61 92 Room Air 10/19/16 23:46 60 10/19/16 21:10 60 128/50 10/19/16 20:00 98.1 60 26 128/50 95 Room Air 10/19/16 19:47 60 10/19/16 19:35 64 18 Room Air 10/19/16 16:00 60 10/19/16 16:00 97.9 61 14 100/53 94 Room Air General Appearance: alert Neck: no JVD Cardiovascular: normal rate, regular rhythm, systolic murmur Respiratory/Chest: lungs clear, normal breath sounds Abdomen: normal bowel sounds, non tender, soft Extremities: no swelling Intake and Output 10/19/16 10/20/16 18:59 06:59 Intake Total 150 ml Output Total 600 ml 300 ml Balance -450 ml -300 ml Intake Oral 50 ml Other 100 ml Output Urine Total 600 ml 300 ml Laboratory Tests Test 10/20/16 06:45 White Blood Count 11.0 K/UL (4.8-10.8) H Red Blood Count 4.87 M/UL (4.20-5.40) Hemoglobin 12.8 G/DL (12.0-16.0) Hematocrit 42.3 % (37.0-47.0) Mean Corpuscular Volume 87 FL (80-99) Mean Corpuscular Hemoglobin 26.4 PG (27.0-31.0) L Mean Corpuscular Hemoglobin Concent 30.3 G/DL (32.0-36.0) L Red Cell Distribution Width 13.1 % (11.6-14.8) Platelet Count 280 K/UL (150-450) Mean Platelet Volume 7.0 FL (6.5-10.1) Neutrophils (%) (Auto) 67.1 % (45.0-75.0) Lymphocytes (%) (Auto) 13.3 % (20.0-45.0) L Monocytes (%) (Auto) 17.4 % (1.0-10.0) H Eosinophils (%) (Auto) 0.3 % (0.0-3.0) Basophils (%) (Auto) 2.0 % (0.0-2.0) Sodium Level 140 mEQ/L (135-145) Potassium Level 3.5 mEQ/L (3.4-4.9) Chloride Level 94 mEQ/L (98-107) L Carbon Dioxide Level 31 mEQ/L (20-30) H Anion Gap 15 (5-15) Blood Urea Nitrogen 23 mg/dL (7-23) Creatinine 1.7 mg/dL (0.5-0.9) H Estimat Glomerular Filtration Rate mL/min (>60) Glucose Level 111 mg/dL (74-106) H Calcium Level 9.4 mg/dL (8.6-10.2) Pro-B-Type Natriuretic Peptide 4139 pg/mL (0-450) H ESPERANZA CASTRO Oct 20, 2016 15:11
[2016-10-20 15:25] LABS: ALANINE AMINOTRANSFERASE 14 U/L (3-33); ALBUMIN/GLOBULIN RATIO 0.9 (1.0-2.7); ANION GAP 18 (5-15); ASPARTATE AMINO TRANSFERASE 21 U/L (5-40); CALCIUM 9.3 mg/dL (8.6-10.2); CARBON DIOXIDE 29 mEQ/L (20-30); CHLORIDE 92 mEQ/L (98-107); CREATININE 1.6 mg/dL (0.5-0.9); HEMOLYSIS 2; MAGNESIUM 2.2 mg/dL (1.7-2.5); PHOSPHORUS 3.9 mg/dL (2.5-4.8); POTASSIUM 3.5 mEQ/L (3.4-4.9); SODIUM 139 mEQ/L (135-145); TOTAL PROTEIN 7.1 g/dL (6.6-8.7); URIC ACID 5.6 mg/dL (3.0-7.5)
[2016-10-20 15:38] LABS: CORTISOL 20.8 ug/dL; FREE T3 1.7 pg/mL (2.3-4.2)
[2016-10-21 04:00] VITALS: BP 148/72
[2016-10-21 06:29] LABS: BASOPHILS % (AUTO) 1.5 % (0.0-2.0); EOSINOPHILS % (AUTO) 0.7 % (0.0-3.0); LYMPHOCYTES % (AUTO) 16.6 % (20.0-45.0); MEAN CORPUSCULAR HEMOGLOBIN 27.3 PG (27.0-31.0); MEAN CORPUSCULAR HGB CONC 31.4 G/DL (32.0-36.0); MEAN CORPUSCULAR VOLUME 87 FL (80-99); MEAN PLATELET VOLUME 6.7 FL (6.5-10.1); MONOCYTES % (AUTO) 15.8 % (1.0-10.0); NEUTROPHILS % (AUTO) 65.4 % (45.0-75.0); PLATELET COUNT 255 K/UL (150-450); RED BLOOD COUNT 4.57 M/UL (4.20-5.40); RED CELL DISTRIBUTION WIDTH 13.3 % (11.6-14.8); WHITE BLOOD COUNT 8.9 K/UL (4.8-10.8)
[2016-10-21 06:55] LABS: ALANINE AMINOTRANSFERASE 13 U/L (3-33); ALBUMIN/GLOBULIN RATIO 0.9 (1.0-2.7); ANION GAP 13 (5-15); ASPARTATE AMINO TRANSFERASE 21 U/L (5-40); CALCIUM 9.3 mg/dL (8.6-10.2); CARBON DIOXIDE 32 mEQ/L (20-30); CHLORIDE 96 mEQ/L (98-107); CREATININE 1.4 mg/dL (0.5-0.9); HEMOLYSIS 3; POTASSIUM 3.6 mEQ/L (3.4-4.9); SODIUM 141 mEQ/L (135-145); TOTAL PROTEIN 7.1 g/dL (6.6-8.7)
[2016-10-21 08:29] VITALS: BP 141/56
[2016-10-21 08:35] VITALS: BP 150/64
[2016-10-21] MEDS: Heparin 5000 units/ml inj SUBQ SCH ×2 (09:00→21:24)
[2016-10-21] MEDS: Amiodarone 200mg tab ORAL SCH (09:00)
[2016-10-21] MEDS: Carvedilol 25mg Tab ORAL SCH ×2 (09:00→21:23)
[2016-10-21 11:31] VITALS: BP 122/70
--- NOTE | 2016-10-21 13:33 | Diagnostic Imaging Report ---
APPROVED REPORT CPT Code: 43291 Present Symptoms Lower Extremity Pain: Bilateral BILATERAL: Imaging reveals a patent deep venous system bilaterally. There is no evidence of thrombus within the femoral, popliteal or tibial segments. The greater saphenous veins are also within normal limits. Doppler indicates normal spontaneous flow within these segments.
--- NOTE | 2016-10-21 14:47 | Pulmonology Progress Note ---
Assessment/Plan Problems: (1) Acute exacerbation of CHF (congestive heart failure) (2) Pacemaker (3) CAD (coronary artery disease) Assessment/Plan k supplement measure intake and output check electrolytes 2d echo result noted, severe dvt prophylaxis wb creatinine rising, will hold lasix and get renal studies check electrolytes dc planning, family meeting for plan of care. Subjective ROS Limited/Unobtainable: No Constitutional: Reports: no symptoms HEENT: Repors: no symptoms Respiratory: Reports: no symptoms Allergies: Coded Allergies: No Known Allergies (Unverified , 08/12/14) Objective Last 24 Hour Vital Signs Date Time Temp Pulse Resp B/P Pulse Ox O2 Delivery O2 Flow Rate FiO2 10/21/16 11:31 97.9 69 18 122/70 95 Room Air 10/21/16 09:00 60 150/64 10/21/16 09:00 60 150/64 10/21/16 08:35 99.0 60 20 150/64 97 Room Air 10/21/16 08:00 60 10/21/16 07:50 59 18 Room Air 21 10/21/16 04:00 98.8 69 20 148/72 96 Nasal Cannula 10/21/16 04:00 60 10/20/16 23:59 98.8 76 20 152/78 93 Room Air 10/20/16 21:05 61 144/83 10/20/16 20:00 60 10/20/16 19:33 97.9 61 17 144/83 93 Room Air 10/20/16 19:30 68 20 Room Air 21 10/20/16 15:37 98.7 63 18 152/84 90 Room Air Intake and Output 10/20/16 10/21/16 18:59 06:59 Intake Total 140 ml Output Total 145 ml 350 ml Balance -145 ml -210 ml Intake Oral 140 ml Output Urine Total 145 ml 350 ml General Appearance: WD/WN HEENT: normocephalic, atraumatic Respiratory/Chest: crackles/rales Cardiovascular: normal peripheral pulses, normal rate Abdomen: normal bowel sounds, soft, non tender Genitourinary: normal external genitalia Extremities: no cyanosis Skin: no lesions 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 Lymphatic: no neck adenopathy Laboratory Tests 10/21/16 06:05: White Blood Count 8.9, Red Blood Count 4.57, Hemoglobin 12.5, Hematocrit 39.8, Mean Corpuscular Volume 87, Mean Corpuscular Hemoglobin 27.3, Mean Corpuscular Hemoglobin Concent 31.4L, Red Cell Distribution Width 13.3, Platelet Count 255, Mean Platelet Volume 6.7, Neutrophils (%) (Auto) 65.4, Lymphocytes (%) (Auto) 16.6L, Monocytes (%) (Auto) 15.8H, Eosinophils (%) (Auto) 0.7, Basophils (%) ( Auto) 1.5, Sodium Level 141, Potassium Level 3.6, Chloride Level 96L, Carbon Dioxide Level 32H, Anion Gap 13, Blood Urea Nitrogen 27H, Creatinine 1.4H, Estimat Glomerular Filtration Rate , Glucose Level 106, Calcium Level 9.3, Total Bilirubin 0.7, Aspartate Amino Transf (AST/SGOT) 21, Alanine Aminotransferase (ALT/SGPT) 13, Alkaline Phosphatase 55, Total Protein 7.1, Albumin 3.4L, Globulin 3.7, Albumin/Globulin Ratio 0.9L Current Medications Medications (Trade) Dose Ordered Sig/Fernando Route PRN Reason Start Time Stop Time Status Last Admin Dose Admin Acetaminophen (Tylenol) 650 mg Q4H PRN ORAL Fever 10/17/16 18:00 11/16/16 17:59 10/21/16 11:49 Albuterol/ Ipratropium (DuoNeb 0.5-3(2.5)mg/3ml) 3 ml Q4H PRN HHN Shortness of Breath 10/17/16 18:00 10/22/16 17:59 Amiodarone HCl (Cordarone) 200 mg DAILY ORAL 10/18/16 09:00 11/17/16 08:59 10/19/16 10:24 Amlodipine Besylate (Norvasc) 10 mg DAILY ORAL 10/18/16 09:00 11/17/16 08:59 10/19/16 10:24 Carvedilol (Coreg) 25 mg Q12HR ORAL 10/17/16 21:00 11/16/16 20:59 10/20/16 21:05 Dextrose (Dextrose 50%) STAT PRN IV Hypoglycemia 10/17/16 18:00 11/16/16 17:59 Heparin Sodium (Porcine) (Heparin 5000 units/ml) 5,000 units EVERY 12 HOURS SUBQ 10/17/16 21:00 11/16/16 20:59 10/20/16 21:06 Ondansetron HCl (Zofran) 4 mg Q6H PRN IVP Nausea & Vomiting 10/17/16 18:00 11/16/16 17:59 Polyethylene Glycol (Miralax) 17 gm DAILYPRN PRN ORAL Constipation 10/17/16 18:00 11/16/16 17:59 Potassium Chloride (K-Dur) 40 meq TWICE A DAY ORAL 10/18/16 18:00 11/17/16 17:59 10/20/16 17:11 Quetiapine Fumarate (SEROquel) 25 mg HSPRN PRN ORAL ANXIETY 10/17/16 18:00 11/16/16 17:59 Temazepam (Restoril) 15 mg HSPRN PRN ORAL Insomnia 10/17/16 18:00 10/24/16 17:59 10/18/16 21:22 KEITH PAIGE Oct 21, 2016 14:47
[2016-10-21 16:00] VITALS: BP 145/73
[2016-10-21 20:00] VITALS: BP 133/55
--- NOTE | 2016-10-21 20:30 | Cardiology Progress Note ---
Assessment/Plan Assessment/Plan severe as apparently asymptomatic (known) acute diastolic failure afib paroxysmal cad s/p cabg dementia multiple cvas acute renao insuf agree with holding diurtics fro a few day will need to resume po diuretic tomorrow to avoid readmission on admission her med list does not include diuretics nto felt to be a candidate for invasive Aortic vavle therpay due to multiple comorbidities even though nwo she has an indication inlight of acute chf tele neg cr improved Subjective ROS Limited/Unobtainable: Yes Objective Last 24 Hour Vital Signs Date Time Temp Pulse Resp B/P Pulse Ox O2 Delivery O2 Flow Rate FiO2 10/21/16 19:30 64 20 Room Air 21 10/21/16 16:00 98.4 60 20 145/73 94 Room Air 10/21/16 16:00 60 10/21/16 12:00 60 10/21/16 11:31 97.9 69 18 122/70 95 Room Air 10/21/16 09:00 60 150/64 10/21/16 09:00 60 150/64 10/21/16 08:35 99.0 60 20 150/64 97 Room Air 10/21/16 08:00 60 10/21/16 07:50 59 18 Room Air 21 10/21/16 04:00 98.8 69 20 148/72 96 Nasal Cannula 10/21/16 04:00 60 10/20/16 23:59 98.8 76 20 152/78 93 Room Air 10/20/16 21:05 61 144/83 General Appearance: no apparent distress Neck: normal alignment, supple Cardiovascular: normal rate, regular rhythm, systolic murmur Respiratory/Chest: lungs clear, normal breath sounds Abdomen: normal bowel sounds, non tender, soft Extremities: no swelling Intake and Output 10/20/16 10/21/16 19:00 07:00 Intake Total 140 ml Output Total 145 ml 350 ml Balance -145 ml -210 ml Intake Oral 140 ml Output Urine Total 145 ml 350 ml Laboratory Tests Test 10/21/16 06:05 White Blood Count 8.9 K/UL (4.8-10.8) Red Blood Count 4.57 M/UL (4.20-5.40) Hemoglobin 12.5 G/DL (12.0-16.0) Hematocrit 39.8 % (37.0-47.0) Mean Corpuscular Volume 87 FL (80-99) Mean Corpuscular Hemoglobin 27.3 PG (27.0-31.0) Mean Corpuscular Hemoglobin Concent 31.4 G/DL (32.0-36.0) L Red Cell Distribution Width 13.3 % (11.6-14.8) Platelet Count 255 K/UL (150-450) Mean Platelet Volume 6.7 FL (6.5-10.1) Neutrophils (%) (Auto) 65.4 % (45.0-75.0) Lymphocytes (%) (Auto) 16.6 % (20.0-45.0) L Monocytes (%) (Auto) 15.8 % (1.0-10.0) H Eosinophils (%) (Auto) 0.7 % (0.0-3.0) Basophils (%) (Auto) 1.5 % (0.0-2.0) Sodium Level 141 mEQ/L (135-145) Potassium Level 3.6 mEQ/L (3.4-4.9) Chloride Level 96 mEQ/L (98-107) L Carbon Dioxide Level 32 mEQ/L (20-30) H Anion Gap 13 (5-15) Blood Urea Nitrogen 27 mg/dL (7-23) H Creatinine 1.4 mg/dL (0.5-0.9) H Estimat Glomerular Filtration Rate mL/min (>60) Glucose Level 106 mg/dL (74-106) Calcium Level 9.3 mg/dL (8.6-10.2) Total Bilirubin 0.7 mg/dL (0.0-1.2) Aspartate Amino Transf (AST/SGOT) 21 U/L (5-40) Alanine Aminotransferase (ALT/SGPT) 13 U/L (3-33) Alkaline Phosphatase 55 U/L (35-104) Total Protein 7.1 g/dL (6.6-8.7) Albumin 3.4 g/dL (3.5-5.2) L Globulin 3.7 g/dL Albumin/Globulin Ratio 0.9 (1.0-2.7) L ESPERANZA CASTRO Oct 21, 2016 20:30
[2016-10-22] VITALS (7 sets, daily range): BP systolic 111–139; BP diastolic 57–81
[2016-10-22 07:36] LABS: OSMOLALITY SERUM 292 mOsm/kg (278-305)
--- NOTE | 2016-10-22 08:17 | Cardiology Report ---
APPROVED REPORT EXAM: Two-dimensional and M-mode echocardiogram with Doppler and color Doppler. INDICATION Left ventricular function M-Mode DIMENSIONS IVSd1.6 (0.7-1.1cm)Left Atrium (MM)4.8 (1.6-4.0cm) LVDd3.9 (3.5-5.6cm)Aortic Root2.2 (2.0-3.7cm) PWd1.8 (0.7-1.1cm)Aortic Cusp Exc.1.1 (1.5-2.0cm) LVDs2.6 (2.5-4.0cm) PWs2.1 cm Normal left ventricular chamber size, systolic function and wall motion. Left ventricular ejection fraction estimated to be 60-65 %. Moderate left ventricular hypertrophy. Small posterior pericardial fat or effusion. Mild bi-atrial enlargement by 2D. Aortic valve calcification with decreased cusp excursion c/w severe aortic stenosis. Thickened mitral valve leaflets with normal excursion. Mitral annulus and aortic root calcification. Pulmonic valve is well visualized. Normal tricuspid valve structure. IVC not obtainable. Probable pacemaker wire present in the right side chambers. A color flow and spectral Doppler study was performed and revealed: Moderate aortic regurgitation. Peak aortic valve gradient of 118mmHg and a mean of 65mmHg, aortic valve area is 0.4 cm2 calculated by continuity equation, this is consistent with critical aortic stenosis. Trace mitral regurgitation. Left ventricular diastolic dysfunction grade 2, LV pseudo-normalization pattern. Moderate tricuspid regurgitation. Tricuspid systolic velocities suggests peak right ventricular systolic pressure of 29 mmHg Pulmonic regurgitation present. Clinical Criteria: ASHLIE Hui and have been notified on 10/18/16 at 3pm
--- NOTE | 2016-10-22 08:40 | Cardiology Report ---
APPROVED REPORT EKG Measurement Heart [id number] Atrial paced, ventricular sensed rhythm Abnormal ECG
--- NOTE | 2016-10-22 09:01 | Diagnostic Imaging Report ---
Indication: Abnormal renal function test Technique: Grayscale and duplex images of the kidneys, retroperitoneum, and bladder were obtained. Comparison:Reference made to abdomen ultrasound 08/14/2014 Findings: Right kidney measures 9.6 cm in length. Left kidney measures 10 cm in length. Both kidneys demonstrate normal echogenicity. There is mild left hydronephrosis. No right hydronephrosis. There is also a 16 mm or pelvic cyst on the left. Focal bright echoes are seen in the left kidney.. No focal abnormality. Normal inferior vena cava. Bladder is empty, contains a Bush catheter. When compared to the previous study, the left hydronephrosis is a new finding by the previously demonstrated right hydronephrosis is no longer evident Impression: Mild left hydronephrosis, new since earlier imaging of 08/07/2014 No right hydronephrosis; hydronephrosis described on 08/15/2014 is no longer evident Bright echoes within the left kidney, could represent small stones but could also be artifactual. Consider CT for better characterization if clinically indicated. Empty bladder, containing a Bush catheter
[2016-10-22] MEDS: Carvedilol 25mg Tab ORAL SCH ×2 (09:12→20:38)
[2016-10-22] MEDS: Amiodarone 200mg tab ORAL SCH (09:13)
[2016-10-22] MEDS: Heparin 5000 units/ml inj SUBQ SCH ×2 (09:14→20:43)
--- NOTE | 2016-10-22 13:06 | Consultation ---
Consult Note Consult Note asked to evaluate for high Cr Patient is 86-year-old female who presented after having increased difficulty breathing for the past few days. The patient gradual onset of symptoms. Reportedly she had been sleeping upright for the past 2 days. The patient is had noted to have a prior cardiac history and has history of congestive heart failure. The patient has pacemaker placement in the past the patient reportedly fell approximately 2 days ago.The patient had the complaint of shortness of breath.The patient had worsening shortness of breath with supine position. Hx Cardiac Problems: Yes - bypass x4 Hx Hypertension: Yes Hx Pacemaker: Yes Hx Gastrointestinal Problems: Yes - GERD Hx Neurological Problems: Yes Hx Cerebrovascular Accident: Yes Hx Dementia: Yes Assessment/Plan Acute renal failure- Cr 1.2 ......> 1.7.....>1.4 Dementia- CHF, Diastolic , acute Atrial Fib, Paroxysmal CAD, previous CABGS Plan: Optimize cardiac status- Keep BP under control Avoid Nephrotoxics monitor renal parameters HANK GUTIERREZ Oct 22, 2016 13:06
--- NOTE | 2016-10-22 16:39 | Pulmonology Progress Note ---
Assessment/Plan Problems: (1) Acute exacerbation of CHF (congestive heart failure) (2) Pacemaker (3) CAD (coronary artery disease) (4) TIA (transient ischemic attack) (5) Aortic stenosis, severe (6) Hemiparesis, left (7) Cerebral vascular disease (8) Sick sinus syndrome (9) UTI (lower urinary tract infection) Assessment/Plan measure intake and output check electrolytes 2d echo result noted, severe dvt prophylaxis wb creatinine rising, will hold lasix and get renal studies check electrolytes dc planning, family meeting for plan of care. Subjective Interval Events: no new complains Allergies: Coded Allergies: No Known Allergies (Unverified , 08/12/14) Objective Last 24 Hour Vital Signs Date Time Temp Pulse Resp B/P Pulse Ox O2 Delivery O2 Flow Rate FiO2 10/22/16 12:23 97.7 60 20 125/67 97 Room Air 10/22/16 09:13 60 133/59 10/22/16 09:12 60 133/59 10/22/16 08:43 97.0 60 20 133/59 96 Room Air 10/22/16 08:00 60 10/22/16 04:00 60 10/22/16 04:00 97.2 62 16 127/57 91 Room Air 10/22/16 00:00 97.5 60 16 111/58 90 Room Air 10/21/16 21:23 64 145/73 10/21/16 20:00 97.9 60 21 133/55 92 Room Air 10/21/16 20:00 60 10/21/16 19:30 64 20 Room Air 21 Intake and Output 10/21/16 10/22/16 19:00 07:00 Intake Total 240 ml 120 ml Output Total 300 ml 200 ml Balance -60 ml -80 ml Intake Oral 240 ml 120 ml Output Urine Total 300 ml 200 ml General Appearance: WD/WN HEENT: normocephalic Respiratory/Chest: chest wall non-tender Cardiovascular: normal peripheral pulses, normal rate Abdomen: normal bowel sounds, soft, non tender Extremities: no cyanosis 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 Current Medications Medications (Trade) Dose Ordered Sig/Fernando Route PRN Reason Start Time Stop Time Status Last Admin Dose Admin Acetaminophen (Tylenol) 650 mg Q4H PRN ORAL Fever 10/17/16 18:00 11/16/16 17:59 10/21/16 11:49 Albuterol/ Ipratropium (DuoNeb 0.5-3(2.5)mg/3ml) 3 ml Q4H PRN HHN Shortness of Breath 10/17/16 18:00 10/22/16 17:59 Amiodarone HCl (Cordarone) 200 mg DAILY ORAL 10/18/16 09:00 11/17/16 08:59 10/22/16 09:13 Amlodipine Besylate (Norvasc) 10 mg DAILY ORAL 10/18/16 09:00 11/17/16 08:59 10/22/16 09:13 Carvedilol (Coreg) 25 mg Q12HR ORAL 10/17/16 21:00 11/16/16 20:59 10/22/16 09:12 Dextrose (Dextrose 50%) STAT PRN IV Hypoglycemia 10/17/16 18:00 11/16/16 17:59 Furosemide (Lasix) 20 mg DAILY ORAL 10/22/16 09:00 11/21/16 08:59 10/22/16 09:13 Heparin Sodium (Porcine) (Heparin 5000 units/ml) 5,000 units EVERY 12 HOURS SUBQ 10/17/16 21:00 11/16/16 20:59 10/22/16 09:14 Ondansetron HCl (Zofran) 4 mg Q6H PRN IVP Nausea & Vomiting 10/17/16 18:00 11/16/16 17:59 Polyethylene Glycol (Miralax) 17 gm DAILYPRN PRN ORAL Constipation 10/17/16 18:00 11/16/16 17:59 Potassium Chloride (K-Dur) 40 meq TWICE A DAY ORAL 10/18/16 18:00 11/17/16 17:59 10/22/16 09:12 Quetiapine Fumarate (SEROquel) 25 mg HSPRN PRN ORAL ANXIETY 10/17/16 18:00 11/16/16 17:59 Temazepam (Restoril) 15 mg HSPRN PRN ORAL Insomnia 10/17/16 18:00 10/24/16 17:59 10/18/16 21:22 KEITH PAIGE Oct 22, 2016 16:39
[2016-10-22] MEDS ORDERED: Miralax 17gm pkt ORAL PRN (20:00)
--- NOTE | 2016-10-22 20:39 | Cardiology Progress Note ---
Assessment/Plan Assessment/Plan severe as apparently asymptomatic (known) acute diastolic failure afib paroxysmal cad s/p cabg dementia multiple cvas acute renao insuf agree with holding diurtics fro a few day will need to resume po diuretic tomorrow to avoid readmission on admission her med list does not include diuretics nto felt to be a candidate for invasive Aortic vavle therpay due to multiple comorbidities even though nwo she has an indication inlight of acute chf tele neg cr improved laix po dialy for nwo Subjective ROS Limited/Unobtainable: Yes Objective Last 24 Hour Vital Signs Date Time Temp Pulse Resp B/P Pulse Ox O2 Delivery O2 Flow Rate FiO2 10/22/16 20:00 97.9 60 18 131/69 96 Room Air 10/22/16 19:01 97.3 60 18 133/64 95 Room Air 10/22/16 16:00 60 10/22/16 16:00 96.6 67 19 139/81 97 Room Air 10/22/16 12:23 97.7 60 20 125/67 97 Room Air 10/22/16 09:13 60 133/59 10/22/16 09:12 60 133/59 10/22/16 08:43 97.0 60 20 133/59 96 Room Air 10/22/16 08:00 60 10/22/16 07:20 63 18 Room Air 21 10/22/16 04:00 60 10/22/16 04:00 97.2 62 16 127/57 91 Room Air 10/22/16 00:00 97.5 60 16 111/58 90 Room Air 10/21/16 21:23 64 145/73 General Appearance: no apparent distress Neck: no JVD Cardiovascular: normal rate, regular rhythm, systolic murmur Respiratory/Chest: chest wall non-tender, lungs clear, normal breath sounds Abdomen: non tender, soft, no organomegaly Extremities: no swelling Intake and Output 10/21/16 10/22/16 19:00 07:00 Intake Total 240 ml 120 ml Output Total 300 ml 200 ml Balance -60 ml -80 ml Intake Oral 240 ml 120 ml Output Urine Total 300 ml 200 ml ESPERANZA CASTRO Oct 22, 2016 20:39
[2016-10-23] VITALS: BP 124/85
[2016-10-23 04:00] VITALS: BP 105/66
[2016-10-23 07:05] LABS: BASOPHILS % (AUTO) 0.8 % (0.0-2.0); EOSINOPHILS % (AUTO) 1.8 % (0.0-3.0); LYMPHOCYTES % (AUTO) 23.9 % (20.0-45.0); MEAN CORPUSCULAR HEMOGLOBIN 28.1 PG (27.0-31.0); MEAN CORPUSCULAR HGB CONC 31.6 G/DL (32.0-36.0); MEAN CORPUSCULAR VOLUME 89 FL (80-99); MEAN PLATELET VOLUME 6.4 FL (6.5-10.1); MONOCYTES % (AUTO) 7.1 % (1.0-10.0); NEUTROPHILS % (AUTO) 66.5 % (45.0-75.0); PLATELET COUNT 224 K/UL (150-450); RED BLOOD COUNT 4.31 M/UL (4.20-5.40); RED CELL DISTRIBUTION WIDTH 13.4 % (11.6-14.8); WHITE BLOOD COUNT 12.1 K/UL (4.8-10.8)
[2016-10-23 07:16] LABS: ALANINE AMINOTRANSFERASE 13 U/L (3-33); ALBUMIN/GLOBULIN RATIO 0.8 (1.0-2.7); ANION GAP 8 (5-15); ASPARTATE AMINO TRANSFERASE 22 U/L (5-40); CARBON DIOXIDE 29 mEQ/L (20-30); CHLORIDE 106 mEQ/L (98-107); CHOLESTEROL 170 mg/dL (< 200); CHOLESTEROL/HDL RATIO 2.8 (3.3-4.4); CREATININE 1.2 mg/dL (0.5-0.9); CRP QUANT 1.4 mg/dL (< 0.5); HEMOLYSIS 0; LDL CHOLESTEROL (CALC.) 90 mg/dL (60-99); MAGNESIUM 2.5 mg/dL (1.7-2.5); PHOSPHORUS 2.9 mg/dL (2.5-4.8); POTASSIUM 4.8 mEQ/L (3.4-4.9); SODIUM 143 mEQ/L (135-145); URIC ACID 3.4 mg/dL (3.0-7.5)
[2016-10-23 07:18] LABS: HEMOGLOBIN A1C 5.6 % (< 6.0)
[2016-10-23 08:00] VITALS: BP 143/70
[2016-10-23] MEDS ORDERED: Amiodarone 200mg tab ORAL SCH (09:00)
[2016-10-23] MEDS: Carvedilol 25mg Tab ORAL SCH (09:11)
[2016-10-23] MEDS: Heparin 5000 units/ml inj SUBQ SCH (09:13)
--- NOTE | 2016-10-23 10:27 | General Progress Note ---
Assessment/Plan Status: stable - from renal stand Assessment/Plan Acute renal failure- Cr 1.2 ......> 1.7.....>1.4.... > 1.2 Dementia- CHF, Diastolic , acute Atrial Fib, Paroxysmal CAD, previous CABGS Plan: Optimize cardiac status- Keep BP under control Avoid Nephrotoxics monitor renal parameters Subjective ROS Limited/Unobtainable: No Constitutional: Reports: malaise, weakness Allergies: Coded Allergies: No Known Allergies (Unverified , 08/12/14) Objective Last 24 Hour Vital Signs Date Time Temp Pulse Resp B/P Pulse Ox O2 Delivery O2 Flow Rate FiO2 10/23/16 09:11 66 143/70 10/23/16 09:10 66 143/70 10/23/16 08:00 97.3 66 18 143/70 95 Room Air 10/23/16 04:00 97.3 60 19 105/66 96 Room Air 10/23/16 00:00 97.3 72 18 124/85 94 Room Air 10/22/16 20:38 60 131/69 10/22/16 20:00 97.9 60 18 131/69 96 Room Air 10/22/16 19:01 97.3 60 18 133/64 95 Room Air 10/22/16 16:00 60 10/22/16 16:00 96.6 67 19 139/81 97 Room Air 10/22/16 12:23 97.7 60 20 125/67 97 Room Air Intake and Output 10/22/16 10/23/16 19:00 07:00 Intake Total 240 ml 360 ml Output Total 270 ml 675 ml Balance -30 ml -315 ml Intake Oral 240 ml 360 ml Output Urine Total 270 ml 675 ml Laboratory Tests 10/23/16 05:40: White Blood Count 12.1H, Red Blood Count 4.31, Hemoglobin 12.1, Hematocrit 38.4 , Mean Corpuscular Volume 89, Mean Corpuscular Hemoglobin 28.1, Mean Corpuscular Hemoglobin Concent 31.6L, Red Cell Distribution Width 13.4, Platelet Count 224, Mean Platelet Volume 6.4L, Neutrophils (%) (Auto) 66.5, Lymphocytes (%) (Auto) 23.9, Monocytes (%) (Auto) 7.1, Eosinophils (%) (Auto) 1.8, Basophils (%) (Auto) 0.8, Sodium Level 143, Potassium Level 4.8, Chloride Level 106, Carbon Dioxide Level 29, Anion Gap 8, Blood Urea Nitrogen 31H, Creatinine 1.2H, Estimat Glomerular Filtration Rate , Glucose Level 89, Hemoglobin A1c 5.6, Uric Acid 3.4, Calcium Level 9.0, Phosphorus Level 2.9, Magnesium Level 2.5, Total Bilirubin 0.5, Gamma Glutamyl Transpeptidase 23, Aspartate Amino Transf (AST/SGOT) 22, Alanine Aminotransferase (ALT/SGPT) 13, Alkaline Phosphatase 54, Total Creatine Kinase 32, C-Reactive Protein, Quantitative 1.4H, Pro-B-Type Natriuretic Peptide 2589H, Total Protein 7.0, Albumin 3.2L, Globulin 3.8, Albumin/Globulin Ratio 0.8L, Triglycerides Level 95 , Cholesterol Level 170, LDL Cholesterol 90, HDL Cholesterol 61H, Cholesterol/ HDL Ratio 2.8L, Thyroid Stimulating Hormone (TSH) 4.330 Height (Feet): 5 Height (Inches): 4.00 Weight (Pounds): 135 General Appearance: no apparent distress Cardiovascular: arrhythmia Respiratory/Chest: decreased breath sounds Objective no change in PE HANK GUTIERREZ Oct 23, 2016 10:27
[2016-10-23 12:00] VITALS: BP 121/66
[2016-10-23] MEDS ORDERED: Tubing IV Secondary IV ONE (14:06)
--- NOTE | 2016-10-23 18:44 | Pulmonology Progress Note ---
Assessment/Plan Problems: (1) Acute exacerbation of CHF (congestive heart failure) (2) Pacemaker (3) CAD (coronary artery disease) (4) TIA (transient ischemic attack) (5) Aortic stenosis, severe (6) Hemiparesis, left (7) Cerebral vascular disease (8) Sick sinus syndrome (9) UTI (lower urinary tract infection) Assessment/Plan measure intake and output check electrolytes 2d echo result noted, severe dvt prophylaxis wb creatinine rising, will hold lasix and get renal studies check electrolytes dc planning, family meeting for plan of care. Subjective ROS Limited/Unobtainable: Yes Neurologic: Reports: confusion, numbness, weakness Allergies: Coded Allergies: No Known Allergies (Unverified , 08/12/14) Objective Last 24 Hour Vital Signs Date Time Temp Pulse Resp B/P Pulse Ox O2 Delivery O2 Flow Rate FiO2 10/23/16 12:00 97.7 60 20 121/66 94 Room Air 10/23/16 09:11 66 143/70 10/23/16 09:10 66 143/70 10/23/16 08:00 97.3 66 18 143/70 95 Room Air 10/23/16 04:00 97.3 60 19 105/66 96 Room Air 10/23/16 00:00 97.3 72 18 124/85 94 Room Air 10/22/16 20:38 60 131/69 10/22/16 20:00 97.9 60 18 131/69 96 Room Air 10/22/16 19:01 97.3 60 18 133/64 95 Room Air Intake and Output 10/22/16 10/23/16 19:00 07:00 Intake Total 240 ml 360 ml Output Total 270 ml 675 ml Balance -30 ml -315 ml Intake Oral 240 ml 360 ml Output Urine Total 270 ml 675 ml General Appearance: no acute distress HEENT: normocephalic, atraumatic, PERRL Respiratory/Chest: chest wall non-tender, lungs clear, normal breath sounds Breasts: no masses Cardiovascular: normal peripheral pulses, normal rate, regular rhythm, no JVD Abdomen: normal bowel sounds, soft, non tender, no organomegaly, non distended Genitourinary: normal external genitalia Extremities: no cyanosis 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: responsive, abnormal CN, motor weakness, sensory deficit, disoriented, aphasia Laboratory Tests 10/23/16 05:40: White Blood Count 12.1H, Red Blood Count 4.31, Hemoglobin 12.1, Hematocrit 38.4 , Mean Corpuscular Volume 89, Mean Corpuscular Hemoglobin 28.1, Mean Corpuscular Hemoglobin Concent 31.6L, Red Cell Distribution Width 13.4, Platelet Count 224, Mean Platelet Volume 6.4L, Neutrophils (%) (Auto) 66.5, Lymphocytes (%) (Auto) 23.9, Monocytes (%) (Auto) 7.1, Eosinophils (%) (Auto) 1.8, Basophils (%) (Auto) 0.8, Sodium Level 143, Potassium Level 4.8, Chloride Level 106, Carbon Dioxide Level 29, Anion Gap 8, Blood Urea Nitrogen 31H, Creatinine 1.2H, Estimat Glomerular Filtration Rate , Glucose Level 89, Hemoglobin A1c 5.6, Uric Acid 3.4, Calcium Level 9.0, Phosphorus Level 2.9, Magnesium Level 2.5, Total Bilirubin 0.5, Gamma Glutamyl Transpeptidase 23, Aspartate Amino Transf (AST/SGOT) 22, Alanine Aminotransferase (ALT/SGPT) 13, Alkaline Phosphatase 54, Total Creatine Kinase 32, C-Reactive Protein, Quantitative 1.4H, Pro-B-Type Natriuretic Peptide 2589H, Total Protein 7.0, Albumin 3.2L, Globulin 3.8, Albumin/Globulin Ratio 0.8L, Triglycerides Level 95 , Cholesterol Level 170, LDL Cholesterol 90, HDL Cholesterol 61H, Cholesterol/ HDL Ratio 2.8L, Thyroid Stimulating Hormone (TSH) 4.330 KEITH PAIGE Oct 23, 2016 18:44
--- NOTE | 2016-10-24 10:00 | Discharge Summary ---
Discharge Summary Hospital Course Date of Admission Oct 17, 2016 at 17:29 Date of Discharge Oct 23, 2016 at 14:07 Admitting Diagnosis chf exacerbation, head contusion NATHALY Barksdale is a 86 year old female who was admitted on Oct 17, 2016 at 17:29 for Congestive Heart Failure Exacerbation,Head Hospital Course The patient is an 86-year-old white female with a history of severe aortic stenosis initially diagnosed in 2012 (aortic valve area 0.6 cm, EF 48% at that time) history of coronary artery disease, remote history of coronary artery bypass graft surgery, and history of sick sinus syndrome status post permanent pacemaker in 2001 with generator replacement (Biotronik) in 2010. She was brought to the emergency room with complaints of increasing shortness of breath, orthopnea, and PND over the few days prior to admission. CXR showed cardiomegaly and small left pleural effusion. Laboratory showed elevated proBNP troponin was negative. EKG showed an atrial paced rhythm. Dr. Harvey was consulted. An Echocardiogram showed evidence of severe aortic stenosis. She was not felt to be a candidate for invasive aortic valve therapy due to multiple comorbidities.Dr Villarreal was consulted for acute renal failure. Creatinine was elevated. Renal work-up ultrasound showed new mild left hydronephrosis, and prior right hydronephrosis no longer evident. Creatinine improved and patient was advised to resume diuretics. She was eventually discharged back home with home health. FINAL DIAGNOSES: 1) Acute exacerbation of diastolic CHF (congestive heart failure) (2) Pacemaker (3) CAD (coronary artery disease) with previous CABG (4) TIA (transient ischemic attack) (5) Aortic stenosis, severe (6) Hemiparesis, left (7) Cerebral vascular disease (8) Sick sinus syndrome (9) UTI (lower urinary tract infection) (10) Acute renal failure (11) Paroxysmal Afib I was assigned to dictate a discharge summary on this account. I was not involved in the patient management. Discharge Discharge Disposition Patient was discharged to Home with Home Health(06) Discharge Diagnoses: Saima Mcintosh NP Oct 24, 2016 10:00
== END 2016-10-23 14:07 | disposition home health service (06) | DRG 194 ==
LOC: ENRESERVTM → ENRESERVDT → EMR 14:10 → 2E 17:29 → EDBEDREQ 17:45 → 2E 18:17 → 4W 10-22 18:26
DX: I50.31 Acute diastolic (congestive) heart failure (principal); N17.9 Acute kidney failure, unspecified; I69.354 Hemiplegia and hemiparesis following cerebral infarction affecting left non-dominant side; F03.90 Unspecified dementia, unspecified severity, without behavioral disturbance, psychotic disturbance, mood disturbance, and anxiety; N39.0 Urinary tract infection, site not specified; I48.0 Paroxysmal atrial fibrillation; I25.10 Atherosclerotic heart disease of native coronary artery without angina pectoris; Z95.0 Presence of cardiac pacemaker; Z95.1 Presence of aortocoronary bypass graft; N28.9 Disorder of kidney and ureter, unspecified; Z86.73 Personal history of transient ischemic attack (TIA), and cerebral infarction without residual deficits; I35.0 Nonrheumatic aortic (valve) stenosis
CPT/HCPCS: 36415; 70450; 71010; 72125; 76775; 80048; 80053; 80061; 81003; 82533; 82550; 82977; 83036; 83735; 83880; 83930; 84100; 84439; 84443; 84481; 84484; 84550; 85025; 85610; 85730; 86140; 87040; 93005; 93306; 93970; 94664; J8499